=== PATIENT | male | born 1945 | race Hispanic/Latino ===

== ENCOUNTER 2017-09-29 10:54 | Day surgery (SDC) | payer MEDICARE ==
[2017-09-17 11:32] VITALS: BMI 27.3
[2017-09-29 11:35] VITALS: RESP 18
[2017-09-29] MEDS ORDERED: Propofol 10 mg/ml Inj (20 ML) ONE (13:20)
[2017-09-29] MEDS ORDERED: Midazolam 2 MG/2 ML VIAL ONE (13:20)
[2017-09-29] MEDS ORDERED: Lidocaine 2% Inj (20ml) ONE (13:23)
[2017-09-29] MEDS ORDERED: methylPREDNISolone Depo 80 mg/ml Inj ONE (13:23)
[2017-09-29] MEDS ORDERED: Lidocaine 2% MPF (5 ml) Inj ONE (13:33)
[2017-09-29] MEDS ORDERED: Lactated Ringer's 1,000 ML IV ONE (13:35)
[2017-09-29] MEDS ORDERED: Lactated Ringer's 1,000 ML IV SCH (14:15)
[2017-09-29 15:03] VITALS: O2SAT 99
[2017-09-29 15:27] VITALS: BP 150/73; PULSE 70; TEMP 98
--- NOTE | 2017-09-29 21:57 | OP ---
PROCEDURE DATE: 09/29/2017 PREOPERATIVE DIAGNOSIS: Lumbar spondylosis. POSTOPERATIVE DIAGNOSIS: Lumbar spondylosis. PROCEDURE: Lumbar medial nerve branch block at bilateral L3-4, L4-5 and L5-S1 with xray guidance SURGEON: Chito Harrell MD ANESTHESIOLOGIST: Dr. Cardoso. COMPLICATIONS: None. ESTIMATED BLOOD LOSS: None. DESCRIPTION OF PROCEDURE: After informed consent was obtained, the patient was brought to the OR and placed on table in prone position. All pressure points were padded, sedation was administered by anesthesia. The lumbosacral spine was prepped with iodine x3 and draped in normal sterile fashion. 4 mL of 1% lidocaine was used for skin wheals using 25-gauge needle. X-ray was used in the AP view to guide a 22-gauge 3.5-inch spinal needle to the junction of the left L3 superior articular process intersection with a transverse process at left L34. The needle was placed to bony contact and there was no paresthesia during placement of the needle. After negative aspiration for heme or CSF, 1 mL of 0.5% lidocaine and Depo-Medrol was easily instilled. This procedure repeated for the facets at left L4-5, L5-S1 and right L3-4, L4-5 and L5-S1. There was no paresthesia during the case. 80 mg of Depo-Medrol was used for the case. The patient was brought to stage II recovery room with bilateral lower extremity motor and sensory intact. Chito Harrell MD [facility]
--- NOTE | 2017-09-30 11:40 | RAD ---
PROCEDURE: Intraoperative Fluoroscopy. HISTORY: PAIN MANAGEMENT FINDINGS: Fluoroscopic assistance was provided for pain management procedure. Please refer to the operative report from SABIHA Conley. 56.7 seconds of fluoro time was utilized with a radiation cumulative dose of 15.51 mGy.
== END 2017-09-29 15:20 | disposition home or self-care (01) ==
LOC: H.OPSURG 10:54
PROVIDERS: ATTEND Anesthesiology Pain Medicine
DX: M47.816 Spondylosis without myelopathy or radiculopathy, lumbar region (principal); E11.9 Type 2 diabetes mellitus without complications; E78.5 Hyperlipidemia, unspecified; K21.9 Gastro-esophageal reflux disease without esophagitis; Z87.891 Personal history of nicotine dependence
CPT/HCPCS: 64520; 82948; J1040; J2001; J2250; J2704; J7120

== ENCOUNTER 2017-11-14 06:04 | Day surgery (SDC) | payer MEDICARE ==
[2017-09-17 11:32] VITALS: BMI 27.3
[2017-11-14] MEDS ORDERED: Bupivacaine HCl 0.25% PF (30 ml) Inj ONE (07:26)
[2017-11-14] MEDS ORDERED: methylPREDNISolone Depo 80 mg/ml Inj ONE (07:26)
[2017-11-14] MEDS ORDERED: MethylPREDNISolone Depo 40 mg/ml Inj ONE (07:26)
[2017-11-14] MEDS ORDERED: Iohexol 300 10 ML ONE (07:27)
[2017-11-14] MEDS ORDERED: Propofol 10 mg/ml Inj (20 ML) ONE (08:39)
[2017-11-14] MEDS ORDERED: Midazolam 2 MG/2 ML VIAL ONE (08:39)
[2017-11-14] MEDS ORDERED: Lactated Ringer's 1,000 ML IV ONE (08:40)
[2017-11-14] MEDS ORDERED: Lidocaine 1% (10 ml) Inj INJ ONE (08:50)
[2017-11-14] MEDS ORDERED: Lactated Ringer's 1,000 ML IV SCH (09:15)
[2017-11-14 10:23] VITALS: RESP 18; O2SAT 97
[2017-11-14 10:57] VITALS: BP 144/84; PULSE 82; TEMP 98.6
--- NOTE | 2017-11-14 15:42 | RAD ---
Date of service: 11/14/2017 PROCEDURE: Fluoroscopy up to 1 hr. HISTORY: PAIN MANAGEMENT COMPARISON: None TECHNIQUE: Standard protocol for this study/examination. FINDINGS: Submitted images from the current procedure: 1.0. IMPRESSION: Total fluoroscopic time (continuous mode) utilized during the procedure 13.2 seconds.
--- NOTE | 2017-11-14 20:30 | OP ---
PROCEDURE DATE: 11/14/2017 PREOPERATIVE DIAGNOSIS: Lumbar radiculopathy. POSTOPERATIVE DIAGNOSIS: Lumbar radiculopathy. PROCEDURE: Left L5-S1 transforaminal epidural steroid injection. ANESTHESIOLOGIST: Delroy Arriaga MD SURGEON: Alfonso Briggs MD TYPE OF ANESTHESIA: Monitored anesthesia care. COMPLICATIONS: None. SPECIMEN: None. DESCRIPTION OF PROCEDURE: As follows. After we had discussion of the procedure with the patient including its risks, benefits, alternatives, outcome data, possibility of no effect or increased pain, the patient consented to the procedure. He denied any recent infections, bleeding tendencies, or being on anticoagulants; a decision was then made to proceed to the OR. The patient was placed on a fluoroscopy table in a prone position with two pillows underneath his abdomen. The back was prepped and draped in the usual sterile fashion. A sterile technique was adhered to during the entire procedure. The L5 vertebral levels were first identified in the anteroposterior view. Angulation towards the left at approximately 20 degrees was used to maximize the visualization of the left L5 pedicle. The skin overlying the 6 o'clock position of the pedicle was then infiltrated with 1% lidocaine using 25-gauge needle. Subsequently, a 22-gauge 3.5-inch spinal needle was then incrementally advanced under fluoroscopic guidance until tip of the needle walked into intravertebral foramen. This was confirmed on the anteroposterior view. After satisfactory position of the needle, approximately 0.5 mL of Isovue contrast was injected showing appropriate epidural spread along with nerve root involvement without any signs of CSF or intravenous involvement. At this point, approximately 3 mL of 0.25% Marcaine and Depo-Medrol mixture was injected. The needle was then removed and the patient's back was cleaned and dry bandages were applied. The patient was then transferred to the recovery area in good conditions without any signs of SENIOR APPLICATION PROGRAMMER toxicity or any neurological deficits. He will be followed in our office in approximately two to four weeks. Alfonso Briggs MD
== END 2017-11-14 11:05 | disposition home or self-care (01) ==
LOC: H.OPSURG 06:04
PROVIDERS: ATTEND Anesthesiology
DX: M54.16 Radiculopathy, lumbar region (principal); E11.9 Type 2 diabetes mellitus without complications; E78.5 Hyperlipidemia, unspecified; I10 Essential (primary) hypertension; M54.9 Dorsalgia, unspecified
CPT/HCPCS: 64483; 82948; J1030; J1040; J2001; J2250; J2704; J3010; J7120; Q9967

== ENCOUNTER 2017-12-10 07:49 | Day surgery (SDC) | payer MEDICARE ==
[2017-09-17 11:32] VITALS: BMI 27.3
[2017-12-10] MEDS ORDERED: methylPREDNISolone Depo 80 mg/ml Inj ONE (08:17)
[2017-12-10] MEDS ORDERED: Lidocaine 2% MPF (5 ml) Inj ONE (08:17)
[2017-12-10] MEDS ORDERED: Iohexol 300 10 ML ONE (08:18)
[2017-12-10] MEDS ORDERED: Bupivacaine HCl 0.25% PF (30 ml) Inj ONE (08:19)
[2017-12-10] MEDS ORDERED: Propofol 10 mg/ml Inj (20 ML) ONE (08:43)
[2017-12-10] MEDS ORDERED: Bupivacaine HCl 0.5% PF (30 ml) Inj ONE (08:46)
[2017-12-10] MEDS ORDERED: Lactated Ringer's 1,000 ML IV PRN (09:01)
[2017-12-10] MEDS ORDERED: Lactated Ringer's 1,000 ML IV ONE (09:16)
[2017-12-10 10:17] VITALS: RESP 18
[2017-12-10 10:50] VITALS: BP 162/86; PULSE 78; TEMP 98.4; O2SAT 97
--- NOTE | 2017-12-10 19:11 | OP ---
Copied To: Alfonso Briggs MD Attending MD: Alfonso Briggs MD PROCEDURE DATE: 12/10/2017 PREOPERATIVE DIAGNOSIS: Lumbar facet syndrome. POSTOPERATIVE DIAGNOSIS: Lumbar facet syndrome. PROCEDURE: Left L3, L4, and L5 medial branch nerve block. SURGEON: Alfonso Briggs MD ANESTHESIOLOGIST: Derrick Palmer DO TYPE OF ANESTHESIA: Monitored anesthesia care. COMPLICATIONS: None. SPECIMEN: None. DESCRIPTION OF PROCEDURE: As follows: After we had discussion of the procedure with the patient including its risks, benefits, alternatives, outcome data, possibility of no effect or increased pain, the patient consented to the procedure. He denied any recent infection, bleeding tendencies, or being on anticoagulants. Decision was then made to proceed to the OR. The patient was placed on a fluoroscopy table in a prone position with two pillows underneath his abdomen. The back was prepped and draped in the usual sterile fashion, and sterile technique was adhered to during the entire procedure. The L3, L4, and L5 medial branch nerves were located at the intersection of the superior articular process and the transverse processes of the L4, L5, and sacral ala on the left side. The above three target areas were visualized on the fluoroscopy by turning it towards the left for approximately 15 degrees. The skin overlying the three above target areas was then infiltrated with 1% lidocaine using 25-gauge needle. Subsequently, a 22-gauge 3-1/2-inch spinal needle was then incrementally advanced under fluoroscopic guidance until the tip of needle made bony contact with the target areas. After satisfactory positioning of all three needles, approximately 3 mL of 0.5% Marcaine and Depo-Medrol mixture was injected. The needle was then removed. Patient's back was cleaned and dry bandages were applied. The patient was then transferred to the recovery area in good condition without any signs of INTERMEDIATE FRAME TENDER toxicity or any neurological deficit. He will be following in the office in approximately two to four weeks. Alfonso Briggs MD
--- NOTE | 2017-12-12 17:03 | RAD ---
Date of service: 12/10/2017 PROCEDURE: Intraoperative fluoroscopy HISTORY: EPIDURAL COMPARISON: Not available TECHNIQUE: Intraoperative fluoroscopy was provided for an interventional pain management procedure. Total time of fluoroscopy was 11.1 seconds. The cumulative dose was 1.78 mGy. FINDINGS: A single fluoroscopic spot film is submitted. IMPRESSION: Fluoroscopy provided.
== END 2017-12-10 10:49 | disposition home or self-care (01) ==
LOC: H.OPSURG 07:49
PROVIDERS: ATTEND Anesthesiology
DX: M47.816 Spondylosis without myelopathy or radiculopathy, lumbar region (principal); E11.9 Type 2 diabetes mellitus without complications; E78.5 Hyperlipidemia, unspecified; K21.9 Gastro-esophageal reflux disease without esophagitis; K29.70 Gastritis, unspecified, without bleeding; M19.90 Unspecified osteoarthritis, unspecified site

== ENCOUNTER 2018-01-16 08:10 | Day surgery (SDC) | payer MEDICARE ==
[2018-01-16 08:54] VITALS: RESP 18
[2018-01-16 09:04] VITALS: BMI 26.4
[2018-01-16] MEDS ORDERED: MethylPREDNISolone Depo 40 mg/ml Inj ONE (09:26)
[2018-01-16] MEDS ORDERED: Lidocaine 2% MPF (5 ml) Inj ONE ×2 (09:28→09:36)
[2018-01-16] MEDS ORDERED: Bupivacaine 0.25% Inj(30mL) ONE (09:36)
[2018-01-16] MEDS ORDERED: Midazolam 2 MG/2 ML VIAL ONE (09:36)
[2018-01-16] MEDS ORDERED: Lactated Ringer's 1,000 ML IV ONE (09:40)
[2018-01-16] MEDS ORDERED: Lidocaine 2% MPF (5 ml) Inj INJ ONE (09:45)
[2018-01-16] MEDS ORDERED: methylPREDNISolone Depo 80 mg/ml Inj IM ONE (09:45)
[2018-01-16] MEDS ORDERED: Bupivacaine HCl 0.25% PF (10 ml) Inj IJ ONE (09:45)
[2018-01-16] MEDS ORDERED: Lactated Ringer's 1,000 ML IV SCH (10:30)
[2018-01-16 11:02] VITALS: O2SAT 97
[2018-01-16 11:38] VITALS: BP 151/89; PULSE 86; TEMP 98.6
--- NOTE | 2018-01-16 21:54 | OP ---
PROCEDURE DATE: 01/16/2018 PREOPERATIVE DIAGNOSIS: Lumbar spondylosis. POSTOPERATIVE DIAGNOSIS: Lumbar spondylosis. PROCEDURE: Left L3, L4 and L5 medial branch nerve radiofrequency. SURGEON: Stanton Briggs MD. ANESTHESIOLOGIST: Darren Sandhu MD TYPE OF ANESTHESIA: Monitored anesthesia care. COMPLICATIONS: None. SPECIMEN: None. DESCRIPTION OF PROCEDURE: After we had discussion of the procedure with the patient including its risks, benefits, alternatives, outcome data, and possibility of no effect or increased pain, the patient consented to the procedure. He denies any recent infection, bleeding tendencies, a decision was then made to the OR. The patient was placed on the fluoroscopic table in a prone position with two pillows underneath his abdomen. The back was prepped and draped in the usual sterile fashion, and a sterile technique was adhered during the entire procedure. 50 was placed on the left side. The L3, L4, and L5 medial branch nerves were located at the intersection of the superior articular process and transverse process of the L4 and L5 vertebral level and also the sacral ala. The three above targeted areas was visualized by turning the fluoroscopy towards the left at approximately 20 degrees. The skin overlying the three above targeted areas was then infiltrated with 1% lidocaine using 25-gauge needle. Subsequently, a 22-gauge 3.5-inch spinal needle was then incrementally advanced under fluoroscopic guidance until the tip of needle made bony contact with all three targeted areas. After satisfactory positioning of all three needles, sensory motor testing was carried out to a satisfactory result. At this point, the each nerve was anesthetized with 1% lidocaine. Then, radiofrequency was carried out at 80 degree Celsius for approximately 90 seconds. At the end of the procedure, each nerve was treated with the combination of 0.25% Marcaine and Depo-Medrol. At the end of the case, the patient's back was clean and dry, bandage was applied. The patient was then transferred to the recovery area in good condition without any signs of ASSISTANT EDUCATION DIRECTOR toxicity or any neurological deficit. He will be following in the office in approximately two to four weeks. Alfonso Briggs MD [facility] # [id number]
--- NOTE | 2018-01-18 12:14 | RAD ---
Date of service: 01/16/2018 PROCEDURE: Fluoroscopy up to 1 hr. HISTORY: PAIN MANAGEMENT COMPARISON: None TECHNIQUE: Standard protocol for this study/examination. FINDINGS: Total fluoroscopic time (continuous mode) utilized during the procedure 38.4 (seconds). Total exam DLP: 11.03 (mGy). IMPRESSION: Less than 1 hr fluoroscopic assistance provided during performance of the procedure.
== END 2018-01-16 11:38 | disposition home or self-care (01) ==
LOC: H.OPSURG 08:10
PROVIDERS: ATTEND Anesthesiology
DX: M47.816 Spondylosis without myelopathy or radiculopathy, lumbar region (principal); M19.90 Unspecified osteoarthritis, unspecified site; E11.9 Type 2 diabetes mellitus without complications
CPT/HCPCS: 64635; 64636; 82948; J1030; J1040; J2250; J3010; J7120

== ENCOUNTER 2018-02-11 05:25 | Emergency (ER) | payer MEDICARE ==
[2018-02-11 05:25] VITALS: BMI 26.4
[2018-02-11] MEDS ORDERED: Sodium Chloride 0.9% 1,000 ML IV STA (08:09)
[2018-02-11 08:32] LABS: BASO # 0.1 K/uL (0.0-0.2); BASO % 0.7 % (0.0-2.0); EOS # 0.2 K/uL (0.0-0.7); EOS % 3.1 % (0.0-4.0); HEMOGLOBIN 13.6 g/dL (12.0-18.0); LYMPH # 1.3 K/uL (1.0-4.3); LYMPH % 17.7 % (20.0-40.0); MEAN CELL VOLUME 89.8 fl (80.0-94.0); MEAN CORPUSCULAR HEMOGLOBIN 30.7 pg (27.0-31.0); MEAN CORPUSCULAR HGB CONC 34.2 g/dL (33.0-37.0); MEAN PLATELET VOLUME 6.9 fl (7.2-11.7); MONO # 0.8 K/uL (0.0-0.8); MONO % 10.8 % (0.0-10.0); NEUT % 67.7 % (50.0-75.0); RBC 4.42 Mil/uL (4.40-5.90); WHITE BLOOD COUNT 7.4 K/uL (4.8-10.8)
[2018-02-11 08:44] LABS: BLOOD UREA NITROGEN 12 mg/dl (9-20); CALCIUM 9.6 mg/dL (8.4-10.2); GFR NON-AFRICAN AMERICAN > 60
[2018-02-11 10:58] VITALS: TEMP 98.1; O2SAT 97
--- NOTE | 2018-02-11 11:22 | ED PDOC ---
HPI: Chest Pain Time Seen by Provider: 02/11/18 07:06 Chief Complaint (Nursing): Chest Pain Chief Complaint (Provider): dizziness History Per: Patient (72 yo male who presents to the ER because of dizzinees (lightheaded but not spinning) for the past week associated with 4 episodes of vomiting last week. Since then he has been eating well and has not had further vomiting or diarrhea. He also has reports having on/off chest pain for the past 3 weeks. He has not seen his PMD Dr. Wren for this. The CP is non-exertional. It is achy is nature.) Past Medical History Reviewed: Historical Data, Nursing Documentation, Vital Signs Vital Signs: Last Vital Signs Temp 98.1 F 02/11/18 05:38 Pulse 80 02/11/18 05:59 Resp 16 02/11/18 05:59 BP 147/78 02/11/18 05:59 Pulse Ox 97 02/11/18 05:59 - Medical History PMH: Arthritis (spine), Gastritis, Hypercholesterolemia Denies: Chronic Kidney Disease - Family History Family History: States: No Known Family Hx - Living Arrangements Living Arrangements: With Family - Home Medications Home Medications: Ambulatory Orders Medication Instructions Recorded Atorvastatin [Lipitor] 20 mg PO DAILY 06/14/16 Esomeprazole Magnesium [Nexium] 40 mg PO DAILY 06/14/16 GlipiZIDE [Glucotrol] 2 mg PO BID 06/14/16 Sitagliptin Phos/Metformin HCl 1 each PO BID 06/14/16 [Janumet 50-1,000 mg Tablet] - Allergies Allergies/Adverse Reactions: Allergies Allergy/AdvReac Type Severity Reaction Status Date / Time No Known Allergies Allergy Verified 01/16/18 08:20 NEIL Risk Score for UA/NSTEMI - NEIL Risk Score Age > 64: YES 3 or more CAD Risk Factors: NO Known CAD (Stenosis greater than 50%): NO Aspirin use in past 7 days: NO Severe Angina: NO EKG ST changes greater than 0.5mm: NO Positive Cardiac Marker: NO NEIL Score: 1 Risk %: 5% Review of Systems ROS Statement: Except As Marked, All Systems Reviewed And Found Negative Cardiovascular: Positive for: Chest Pain Neurological: Positive for: Dizziness Physical Exam - Reviewed Nursing Documentation Reviewed: Yes Vital Signs Reviewed: Yes - Physical Exam Appears: Positive for: Well, Non-toxic, No Acute Distress Head Exam: Positive for: ATRAUMATIC, NORMAL INSPECTION, NORMOCEPHALIC Skin: Positive for: Normal Color, Warm, DRY Eye Exam: Positive for: EOMI, Normal appearance, PERRL ENT: Positive for: Normal ENT Inspection Neck: Positive for: Normal, Painless ROM Cardiovascular/Chest: Positive for: Regular Rate, Rhythm Respiratory: Positive for: CNT, Normal Breath Sounds Gastrointestinal/Abdominal: Positive for: Normal Exam, Soft Back: Positive for: Normal Inspection Extremity: Positive for: Normal ROM Neurologic/Psych: Positive for: Alert, Oriented - Laboratory Results Result Diagrams: 02/11/18 05:15 02/11/18 05:15 - ECG O2 Sat by Pulse Oximetry: 97 Medical Decision Making Medical Decision Making: his labs are normal as is his EKG. On re-eval, he states feeling better. He is sitting up and ready for discharge. He agrees to see Dr. Wren for followup. Disposition - Clinical Impression Clinical Impression: Dizziness - Patient ED Disposition Is Patient to be Admitted: No Doctor Will See Patient In The: Office Counseled Patient/Family Regarding: Diagnosis, Need For Followup - Disposition Referrals: Aldair Wren MD [Family Provider] - Disposition: Routine/Home Disposition Time: 10:45 Condition: IMPROVED Instructions: Dizziness, Nonvertigo, (DC) - POA Present On Arrival: None
[2018-02-11 11:48] VITALS: BP 130/70; PULSE 85; RESP 18
--- NOTE | 2018-02-11 19:10 | CARD ---
APPROVED REPORT Date of service: 02/11/2018 EKG Measurement Heart [id number] [id number] <Conclusion> Normal sinus rhythm Normal ECG
== END 2018-02-11 11:23 | disposition home or self-care (01) ==
LOC: H.ER 05:25
DX: R42 Dizziness and giddiness (principal); R11.10 Vomiting, unspecified; E78.00 Pure hypercholesterolemia, unspecified; Z79.84 Long term (current) use of oral hypoglycemic drugs
CPT/HCPCS: 80048; 84484; 85025; 93005; 99285; J7030

== ENCOUNTER 2018-05-06 08:38 | Day surgery (SDC) | payer MEDICARE ==
[2018-05-06] MEDS ORDERED: Lactated Ringer's 1,000 ML IV ONE (09:00)
[2018-05-06] MEDS ORDERED: Iohexol 300 10 ML ONE (09:53)
[2018-05-06] MEDS ORDERED: MethylPREDNISolone Depo 40 mg/ml Inj ONE ×3 (09:53→11:03)
[2018-05-06] MEDS ORDERED: Bupivacaine HCl 0.5% PF (30 ml) Inj ONE (09:53)
[2018-05-06] MEDS ORDERED: Lidocaine 1% Inj (20ml) ONE (09:54)
--- NOTE | 2018-05-06 10:09 | CP.SDSHP ---
Same Day Surgery H & P - History Proposed Procedure: Left sacroiliac joint steroid injection Pre-Op Diagnosis: Left sacroiliitis - Allergies Allergies: Allergies No Known Allergies Allergy (Verified 05/06/18 09:48) - Physical Exam Vital Signs: Vital Signs 05/06/18 09:00 Temperature 98 F Pulse Rate 89 Respiratory 20 Rate Blood Pressure 165/80 H O2 Sat by Pulse 98 Oximetry Neuro: WNL Heart: WNL Lungs: WNL - Impression Impression: Left sacroiliitis Pt. Evaluated Today:Candidate for Anesthesia & Procedure: Yes Short Stay Discharge - Short Stay Discharge Admitting Diagnosis/Reason for Visit: M47.816 Disposition: HOME/ ROUTINE
[2018-05-06] MEDS ORDERED: Midazolam 2 MG/2 ML VIAL ONE (10:34)
[2018-05-06] MEDS ORDERED: Propofol 10 mg/ml Inj (20 ML) ONE (10:34)
[2018-05-06 12:12] VITALS: O2SAT 97
[2018-05-06 12:29] VITALS: BP 144/80; PULSE 78; RESP 18; TEMP 97.8
--- NOTE | 2018-05-06 14:31 | RAD ---
Date of service: 05/06/2018 PROCEDURE: Fluoroscopy up to 1 hr. HISTORY: PAIN MANAGEMENT COMPARISON: None TECHNIQUE: Standard protocol for this study/examination. FINDINGS: Total fluoroscopic time (continuous mode) utilized during the procedure 21.4 seconds. Total exam DLP: 5.28 (mGy). IMPRESSION: Less than 1 hr fluoroscopic assistance provided during performance of the procedure.
--- NOTE | 2018-05-07 04:54 | PROCN ---
DATE OF PROCEDURE: 05/06/2018 PREOPERATIVE DIAGNOSES: Left sacroiliitis and left greater trochanteric bursitis. POSTOPERATIVE DIAGNOSES: Left sacroiliitis and left greater trochanteric bursitis. PROCEDURE: Left sacroiliac joint steroid injection and left greater trochanteric bursa injection. ANESTHESIOLOGIST: Dr. Arriaga. SURGEON: Alfonso Briggs MD. ANESTHESIA TYPE: Monitored anesthesia care. COMPLICATIONS: None. SPECIMENS: None. DESCRIPTION OF PROCEDURE: After we had discussion of the procedure with the patient including its risks, benefits, alternatives, outcome data, possibility of no effect or increased pain, the patient consented to the procedure. He denies any recent infection, bleeding tendencies, or being on anticoagulants. A decision was then made to proceed to the OR. The patient was placed on the fluoroscopy table in a prone position with two pillows underneath his abdomen. The back was prepped and draped in the usual sterile fashion, and sterile technique was adhered to during the entire procedure. The left sacroiliac joint was first visualized on the anterior-posterior view. The posterior opening was differentiated from the anterior opening. The target is at the inferior pole of the posterior opening. The skin overlying this area was then infiltrated with 1% lidocaine using 25-gauge needle. Subsequently, a 22-gauge 3.5-inch spinal needle was incrementally advanced under fluoroscopic guidance until tip of the needle walked into the joint capsule. After appropriate placement of the needle, approximately 0.5 mL of Isovue contrast was injected showing appropriate spread up the joint line. At this point, approximately 3 mL of 0.5% Marcaine and Depo-Medrol mixture was injected. The needle was then removed. The left greater trochanteric bursa was palpated on the skin. Under fluoroscopic guidance, a 22-gauge 3.5 inch needle was inserted at this point perpendicular to the skin, parallel to the floor until bony contact was made with the greater trochanteric bursa. This was confirmed on fluoroscopy. After appropriate placement of the needle, approximately 5 mL of 0.5% Marcaine and Depo-Medrol mixture was injected. The needle was then removed. The patient's back was cleaned and dry bandages were applied. The patient was then transferred to the recovery area in good condition without any signs of BIOFUELS PRODUCTION MANAGER toxicity or any neurological deficit. He will be following in the office in approximately two to four weeks. Alfonso Briggs MD
== END 2018-05-06 16:29 | disposition home or self-care (01) ==
LOC: H.OPSURG 08:38
PROVIDERS: ATTEND Anesthesiology
DX: M47.816 Spondylosis without myelopathy or radiculopathy, lumbar region (principal); E11.9 Type 2 diabetes mellitus without complications; E78.5 Hyperlipidemia, unspecified; K29.50 Unspecified chronic gastritis without bleeding; M46.1 Sacroiliitis, not elsewhere classified
CPT/HCPCS: 20610; 82948; G0260; J1030; J2001; J2250; J2704; J3010; J7120; Q9967